=== PATIENT | male | born 1995 | race African-American/Black ===

== ENCOUNTER 2021-04-26 01:34 | Emergency (ER) | payer OTHER ==
[~2021-04-26] VITALS: Ht 177.8 cm; Wt 83.9 kg
[2021-04-26] MEDS ORDERED: IV NS 1000 ML 1,000 ML IV ONE (02:15)
[2021-04-26] MEDS ORDERED: MORPHINE SULFATE 4 MG/1 ML DISP.SYRIN IV ONE (02:15)
--- NOTE | 2021-04-26 02:20 | NUR ---
Pt. came from home, chief complaint is pain in neck with swelling. Neck appears very swollen. Pt. stated it appeared yesterday. Pt. states he had some difficulty swallowing with a sore throat, stating it hurt to eat yesterday. Today pt. came to ER because pain in neck increased to 9/10 and swelling was worse. Pt. denied allergies, fever, or other symptoms. Pt.'s girlfriend is at bedside. Vss. Will continue to monitor.
[2021-04-26] MEDS ORDERED: MORPHINE SULFATE 4 MG/1 ML DISP.SYRIN ONE (02:31)
[2021-04-26] MEDS ORDERED: IOHEXOL 300MG/ML 100 ML INFUS..BTL ONE (02:39)
[2021-04-26] MEDS ORDERED: SWABABLE VALVE TRANSFER SET EA MC ONE (02:39)
[2021-04-26] MEDS ORDERED: IV NORMAL SALINE 250 ML IV ONE (02:39)
[2021-04-26 02:49] LABS: BASOPHILS % (AUTO) 0.3 % (0.0-2.0); EOSINOPHILS # (AUTO) 0.2 K/uL (0.0-0.7); EOSINOPHILS % (AUTO) 2.1 % (0.0-7.0); HEMATOCRIT 43.3 % (36.7-47.1); HEMOGLOBIN 15.2 g/dL (12.5-16.3); LYMPHOCYTES % (AUTO) 10.8 % (20.5-51.5); MEAN CORPUSCULAR HEMOGLOBIN 28.2 uug (23.8-33.4); MEAN CORPUSCULAR HGB CONC 35 g/dL (32.5-36.3); MONOCYTES # (AUTO) 0.6 K/uL (2.0-10.0); MONOCYTES % (AUTO) 6.2 % (0.0-11.0); NEUTROPHILS # (AUTO) 7.7 K/uL (1.8-8.9); NEUTROPHILS % (AUTO) 80.6 % (38.5-71.5); PLATELET COUNT (AUTO) 211 K/uL (152-348); RED BLOOD CELL COUNT(AUTO) 5.41 MIL/uL (4.06-5.63); WHITE BLOOD COUNT (AUTO) 9.5 K/uL (3.6-10.2)
--- NOTE | 2021-04-26 02:55 | NUR ---
Pt. taken to CT.
[2021-04-26 02:59] LABS: BILIRUBIN,DIRECT 0.2 mg/dL (0.0-0.2); BILIRUBIN,TOTAL 0.6 mg/dL (0.2-1.0); TOTAL PROTEIN, SERUM 8.1 g/dL (6.4-8.2)
--- NOTE | 2021-04-26 03:05 | NUR ---
pt retured from ct
[2021-04-26] MEDS ORDERED: ONDANSETRON 4 MG/2 ML VIAL IV ONE (03:15)
[2021-04-26] MEDS ORDERED: ONDANSETRON 4 MG/2 ML VIAL ONE (03:25)
--- NOTE | 2021-04-26 03:30 | NUR ---
Pt. resting in bed. Pts girlfriend at bedside. Pt. reports reduction in pain to 6/10.
[2021-04-26] MEDS ORDERED: FAMOTIDINE. 20 MG/2 ML VIAL IV ONE ×2 (05:00→05:57)
[2021-04-26] MEDS ORDERED: methylPREDNISolone SOD SUCC 125 MG/2 ML VIAL IV ONE (05:00)
[2021-04-26] MEDS ORDERED: diphenhydrAMINE 50 MG/1 ML VIAL IV ONE (05:00)
[2021-04-26] MEDS ORDERED: EPINEPHRINE-PF 1:1000 1 MG/ML AMPUL IM ONE (05:00)
--- NOTE | 2021-04-26 05:00 | NUR ---
Paged Epic panel. Waiting for Celso Montejo DNP supervisor production department for [facility] to call back.
[2021-04-26] MEDS ORDERED: methylPREDNISolone SOD SUCC 125 MG/2 ML VIAL ONE (05:06)
[2021-04-26] MEDS ORDERED: EPINEPHRINE 1:10,000 1 MG/10 ML DISP.SYRIN ONE (05:06)
[2021-04-26] MEDS ORDERED: EPINEPHRINE 1 MG/1 ML AMP ONE (05:08)
--- NOTE | 2021-04-26 05:40 | NUR ---
Dr Mcarthur spoke with Celso Montejo DNP access liaison for [email or web address].
[2021-04-26] MEDS ORDERED: diphenhydrAMINE 50 MG/1 ML VIAL ONE (05:44)
[2021-04-26] MEDS ORDERED: CEFTRIAXONE 2 G in IV DEXTROSE 5% 100 ML IV ONE (05:45)
[2021-04-26] MEDS ORDERED: METRONIDAZOLE 500 MG/NS 100 ML PIGGYBACK IV ONE (05:45)
[2021-04-26] MEDS ORDERED: METRONIDAZOLE 500 MG/NS 100ML 100 ML IV ONE (05:56)
[2021-04-26] MEDS ORDERED: CEFTRIAXONE /D5W 50ML IVPB **ER PYXIS IV ONE (06:05)
--- NOTE | 2021-04-26 06:24 | NUR ---
Called [facility] , spoke to Allyssa [employer] who requested Facesheet and clinicals to be faxed to . Faxed clinical as requested.
--- NOTE | 2021-04-26 06:43 | NUR ---
Called [facility], spoke to Leesa who requested facesheet and clinical to be faxed to .
--- NOTE | 2021-04-26 07:21 | NUR ---
received patient in shift report, patient noted resting with friend at bedside, patient states his throat feels " a little better", vitals: 122/55, 98% on rom air, 77 heart rate
--- NOTE | 2021-04-26 08:15 | NUR ---
Elida from [facility] faxed patients paper work at this time, awaiting return call
--- NOTE | 2021-04-26 09:14 | NUR ---
Patient continues to rest in bed without any distress
--- NOTE | 2021-04-26 12:01 | NUR ---
Awaiting return call from [facility]
--- NOTE | 2021-04-26 13:28 | NUR ---
MD Guzman noted speaking to MD Murphy of [facility]
--- NOTE | 2021-04-26 13:29 | NUR ---
Patient continues to rest at this time, no changes noted, vitals are stable
[2021-04-26] MEDS ORDERED: DEXAMETHASONE SOD PHOSPHATE 4 MG INJ IV ONE (14:15)
[2021-04-26] MEDS ORDERED: VANCOMYCIN IV 1,000 MG in IV DEXTROSE 5% 250 ML IV ONE (14:15)
--- NOTE | 2021-04-26 14:15 | NUR ---
noted speaking to MD Lee of [facility], hospital states they will accept patient
--- NOTE | 2021-04-26 14:19 | NUR ---
Received telephone call from Kayla (transfer table operator helper for [facility] [phone]) who stated pt has been accepted by , pt will be going to room 120B, call [phone] for report and ask for Manish. Kayla stated she will arrange transport and call back with the information.
[2021-04-26] MEDS ORDERED: DEXAMETHASONE SOD PHOSPHATE 10 MG INJ ONE (14:33)
[2021-04-26] MEDS ORDERED: VANCOMYCIN IV 200 ML ONE (14:33)
--- NOTE | 2021-04-26 17:19 | NUR ---
Patient being transferred to [facility] at this time via [facility] ambulance [facility], no signs of distress noted from patient, report given to Manish URENA, girlfriend noted riding along, IV in left arm intact per [facility] requests
--- NOTE | 2021-04-28 18:55 | NUR ---
LATE ENTRY: 04/26/21 [facility] 2MG IVPB START TIME -1726 END TIME - 1800
== END 2021-04-26 17:25 | disposition short-term general hospital (02) ==
LOC: ER 01:42
DX: T78.3XXA Angioneurotic edema, initial encounter (principal); Z20.822 Contact with and (suspected) exposure to COVID-19; R94.8 Abnormal results of function studies of other organs and systems
CPT/HCPCS: 36415; 70491; 80048; 80076; 83605; 85025; 87040; 87426; 96365; 96366; 96367 ×2; 96372; 96375; 99285; J0171; J0696; J1100; J1200; J2270; J2405; J2930; J3370; J3490 ×2; Q9967; A4663; J7030; J7050